=== PATIENT | male | born 1955 | race Caucasian/White ===

== ENCOUNTER 2023-08-06 16:37 | Emergency (ER) | payer MEDICARE, OTHER | END 2023-08-06 17:06 | disposition home or self-care (01) | LOC: NAV ERS 16:37 | DX: S61.411D Laceration without foreign body of right hand, subsequent encounter (principal); I10 Essential (primary) hypertension; E78.5 Hyperlipidemia, unspecified; F17.220 Nicotine dependence, chewing tobacco, uncomplicated; W23.0XXD Caught, crushed, jammed, or pinched between moving objects, subsequent encounter; Z79.82 Long term (current) use of aspirin; Z79.899 Other long term (current) drug therapy ==